=== PATIENT | male | born 1975 | race Caucasian/White ===

== ENCOUNTER 2018-01-29 16:25 | Emergency (ER) | payer OTHER ==
[~2018-01-29] VITALS: Ht 175.3 cm; Wt 108.4 kg
[2018-01-29 17:21] VITALS: Ht 175.3 cm; Wt 108.4 kg
[2018-01-29 18:58] VITALS: BP 133/89
== END 2018-01-29 18:58 | disposition home or self-care (01) ==
LOC: ED 16:25
DX: S09.8XXA Other specified injuries of head, initial encounter (principal); W18.39XA Other fall on same level, initial encounter; Z91.81 History of falling; Y93.89 Activity, other specified; Y92.89 Other specified places as the place of occurrence of the external cause; Y99.8 Other external cause status

== ENCOUNTER 2020-03-28 13:33 | Emergency (ER) | payer OTHER ==
[~2020-03-28] VITALS: Ht 177.8 cm; Wt 95.3 kg
[2020-03-28 13:52] VITALS: Ht 177.8 cm; Wt 95.3 kg
[2020-03-28 16:40] VITALS: BP 110/72
== END 2020-03-28 16:40 | disposition home or self-care (01) ==
LOC: ED 13:33
DX: S82.434A Nondisplaced oblique fracture of shaft of right fibula, initial encounter for closed fracture (principal); X58.XXXA Exposure to other specified factors, initial encounter; Y93.39 Activity, other involving climbing, rappelling and jumping off; Y92.89 Other specified places as the place of occurrence of the external cause; Y99.8 Other external cause status